=== PATIENT | male | born 1990 | race Hispanic/Latino ===

== ENCOUNTER 2017-11-30 20:21 | Emergency (ER) | payer BC ==
[2017-11-30 20:27] VITALS: TEMP 98
[2017-11-30 20:55] VITALS: BP 148/84; PULSE 80; RESP 18
[2017-11-30 20:57] VITALS: O2SAT 94
--- NOTE | 2017-11-30 20:57 | ED PDOC ---
Upper Extremity Pain/Injury Time Seen by Provider: 11/30/17 20:30 Chief Complaint (Nursing): Upper Extremity Problem/Injury Chief Complaint (Provider): left shoulder pain History Per: Patient History/Exam Limitations: no limitations Onset/Duration Of Symptoms: Mins (SPECIAL INVESTIGATOR) Current Symptoms Are (Timing): Still Present Quality: "Pain" Pain Scale Rating Of: 10 Additional Complaint(s): Meghan Bonilla is a 27 year old male, with a history of previous shoulder dislocation, who presents to the emergency department complaining of left shoulder pain and obvious dislocation onset prior to arrival. Patient states he was playing rugby and he hyperextended his arm when he felt it move out of place. Patient is unable to raise arm and rates the pain a 10/10. Patient denies any other injuries or medical complaints. PMD: None provided. Past Medical History Reviewed: Historical Data, Nursing Documentation, Vital Signs Vital Signs: Last Vital Signs Temp 98.0 F 11/30/17 20:23 Pulse 78 11/30/17 20:23 Resp 22 11/30/17 20:23 BP 114/74 11/30/17 20:23 Pulse Ox 94 L 11/30/17 20:23 - Medical History PMH: No Chronic Diseases - Surgical History Surgical History: No Surg Hx - Family History Family History: States: Unknown Family Hx - Social History Current smoker - smoking cessation education provided: No Alcohol: Occasional Drugs: Denies - Allergies Allergies/Adverse Reactions: Allergies Allergy/AdvReac Type Severity Reaction Status Date / Time Penicillins Allergy RASH Verified 11/30/17 20:23 Review of Systems ROS Statement: Except As Marked, All Systems Reviewed And Found Negative Musculoskeletal: Positive for: Shoulder Pain (left) Physical Exam - Reviewed Nursing Documentation Reviewed: Yes Vital Signs Reviewed: Yes - Physical Exam Appears: Positive for: Non-toxic Head Exam: Positive for: ATRAUMATIC, NORMAL INSPECTION, NORMOCEPHALIC Skin: Positive for: Normal Color, Warm, Dry Eye Exam: Positive for: Normal appearance Neck: Positive for: Painless ROM Extremity: Positive for: Tenderness (left shoulder), Deformity (left shoulder obvious deformity indicative of anterior dislocation. ) Neurologic/Psych: Positive for: Alert, Oriented - ECG O2 Sat by Pulse Oximetry: 94 (RA) Pulse Ox Interpretation: Abnormal Medical Decision Making Medical Decision Making: Time: 20:30 Initial Impression: 27 y/o male with acute left shoulder dislocation. Initial Plan: --Motrin tab 600 mg PO --Shoulder left [RAD] 20:40 -Modified Milch maneuver used to successfully reduce shoulder dislocation. At patient's request no analgesics used. -post reduction xray shoulder shows successfully reduced. 20:50 -Upon provider reevaluation patient is feeling better and requires no further treatment in the ED at this time. Patient will be discharged home. Counseling was provided and all questions were answered regarding diagnosis and need for follow up with orthopedist. There is agreement to discharge plan. Return if symptoms persist or worsen. ----- Scribe Attestation: Documented by Harvinder Kelly, acting as a scribe for Iraj Helms MD. Provider Scribe Attestation: All medical record entries made by the Scribe were at my direction and personally dictated by me. I have reviewed the chart and agree that the record accurately reflects my personal performance of the history, physical exam, medical decision making, and the department course for this patient. I have also personally directed, reviewed, and agree with the discharge instructions and disposition. Disposition - Clinical Impression Clinical Impression: Shoulder dislocation - Disposition Disposition: Routine/Home Disposition Time: 20:50 Condition: IMPROVED Additional Instructions: MEGHAN BONILLA, thank you for letting us take care of you today. Your provider was Iraj Helms MD and you were treated for LT SHOULDER PAIN. The emergency medical care you received today was directed at your acute symptoms. If you were prescribed any medication, please fill it and take as directed. It may take several days for your symptoms to resolve. Return to the Emergency Department if your symptoms worsen, do not improve, or if you have any other problems. Please contact your doctor or call one of the physicians/clinics you have been referred to that are listed on the Patient Visit Information form that is included in your discharge packet. Bring any paperwork you were given at discharge with you along with any medications you are taking to your follow up visit. Our treatment cannot replace ongoing medical care by a primary care provider outside of the emergency department. Thank you for allowing the [facility] team to be part of your care today. If you had an X-Ray or CT scan: A Radiologist will review the ED reading if any change in treatment is needed we will contact you. If you had a blood, urine, or wound culture: It will take several days for the results, if any change in treatment is needed we will contact you. If you had an STI test: It will take 48 hours for the results. Please call after 1 week if you have not heard back. Instructions: Shoulder Dislocation Forms: [facility] (Maltese)
--- NOTE | 2017-12-01 09:41 | RAD ---
Date of service: 11/30/2017 PROCEDURE: Radiographs of the Left Shoulder HISTORY: dislocation s/p reduction COMPARISON: No prior. FINDINGS: BONES: A single postreduction view of the left shoulder has been submitted for interpretation. There is no acute fracture or anterior dislocation appreciated at this time grossly. Given single frontal technique, is difficult to evaluate for potential posterior dislocation which is uncommon and unlikely. Clinically correlate nevertheless. The acromioclavicular joint appears intact and unremarkable. JOINTS: As above. SOFT TISSUES: Normal. OTHER FINDINGS: None. IMPRESSION: No displaced fracture identified. No evidence to suggest anterior dislocation at this time. Limitation: Single fall technique limits evaluation for potential posterior dislocation (with this being unlikely) clinically correlate.
== END 2017-11-30 21:10 | disposition home or self-care (01) ==
LOC: H.ER 20:21
DX: S43.005A Unspecified dislocation of left shoulder joint, initial encounter (principal); X50.9XXA Other and unspecified overexertion or strenuous movements or postures, initial encounter; Y92.328 Other athletic field as the place of occurrence of the external cause; Z88.0 Allergy status to penicillin

== ENCOUNTER 2018-02-04 02:48 | Emergency (ER) | payer BC ==
[2018-02-04 03:11] VITALS: RESP 16; TEMP 98.1; O2SAT 99
[2018-02-04] MEDS ORDERED: Midazolam 2 MG/2 ML VIAL ONE (03:43)
[2018-02-04] MEDS ORDERED: diaZEpam 10 mg/2 ml Inj IVP STA (03:43)
[2018-02-04] MEDS ORDERED: Midazolam 2 MG/2 ML VIAL IV STA (04:49)
--- NOTE | 2018-02-04 06:30 | ED PDOC ---
Upper Extremity Pain/Injury Chief Complaint (Provider): LEft shoulder dislocation History Per: Patient History/Exam Limitations: no limitations Onset/Duration Of Symptoms: Mins Current Symptoms Are (Timing): Still Present Additional Complaint(s): 27 yo male with 2 previous left shoulder dislocation presents with left shoulder pain after reaching arm back for a pillow. Pt states he took 600mg motrin.Pt states he has no numbness/tingling. Pt prefers not to have pain medications. Pt seen in ER in beginning of november for same. Reduced with Modified milch at that time. <Beatrice Max - Last Filed: 02/04/18 21:30> <Farhat Diaz - Last Filed: 02/06/18 04:27> Time Seen by Provider: 02/04/18 02:54 Chief Complaint (Nursing): Upper Extremity Problem/Injury Supervising Attending Note - Attestation: I have personally seen and examined this patient.: Yes I have fully participated in the care of the patient.: Yes I have reviewed all pertinent clinical information: Yes <Farhat Diaz - Last Filed: 02/06/18 04:27> Past Medical History Reviewed: Historical Data, Nursing Documentation, Vital Signs Vital Signs: Last Vital Signs Temp 98.1 F 02/04/18 03:06 Pulse 78 02/04/18 03:06 Resp 16 02/04/18 03:06 BP 132/84 02/04/18 03:06 Pulse Ox 99 02/04/18 03:06 - Medical History PMH: No Chronic Diseases Other PMH: Previous left shoulder dislocation x 2 - Surgical History Surgical History: Tonsillectomy - Family History Family History: States: Unknown Family Hx - Living Arrangements Living Arrangements: With Family - Social History Current smoker - smoking cessation education provided: No Alcohol: None Drugs: Denies <Baetrice Max - Last Filed: 02/04/18 21:30> Vital Signs: Last Vital Signs Temp 98.1 F 02/04/18 03:06 Pulse 84 02/04/18 06:44 Resp 16 02/04/18 03:06 BP 110/74 02/04/18 06:44 Pulse Ox 99 02/04/18 21:41 <Farhat Diaz - Last Filed: 02/06/18 04:27> - Allergies Allergies/Adverse Reactions: Allergies Allergy/AdvReac Type Severity Reaction Status Date / Time Penicillins Allergy RASH Verified 11/30/17 20:23 Review of Systems ROS Statement: Except As Marked, All Systems Reviewed And Found Negative Constitutional: Negative for: Fever, Chills Cardiovascular: Negative for: Chest Pain, Palpitations Respiratory: Negative for: Cough, Shortness of Breath Musculoskeletal: Positive for: Shoulder Pain (Left shoulder pain) <Beatrice Max Stefany - Last Filed: 02/04/18 21:30> Physical Exam - Reviewed Nursing Documentation Reviewed: Yes Vital Signs Reviewed: Yes - Physical Exam Appears: Positive for: Well, Non-toxic, No Acute Distress Head Exam: Positive for: ATRAUMATIC, NORMAL INSPECTION, NORMOCEPHALIC Skin: Positive for: Normal Color, Warm, DRY Eye Exam: Positive for: Normal appearance ENT: Positive for: Normal ENT Inspection Neck: Positive for: Normal Cardiovascular/Chest: Negative for: Bradycardia, Tachycardia Respiratory: Negative for: Accessory Muscle Use, Respiratory Distress Back: Positive for: Normal Inspection Extremity: Positive for: Deformity, Other (Radial pulse 2+, senation intact, 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 Negative for: Normal ROM (Decreased in left shoulder, (+) left shoulder deformity consistant with dislocation), Swelling Neurologic/Psych: Positive for: Alert, Oriented <Beatrice Max - Last Filed: 02/04/18 21:30> - ECG O2 Sat by Pulse Oximetry: 99 Pulse Ox Interpretation: Normal <Beatrice Max Stefany - Last Filed: 02/04/18 21:30> Medical Decision Making Medical Decision Making: Modified milch attempted in ER. WEll tolerated by patient. Palpable pop and patient reports reduction in pain however on re-examination should is still not in joint. Downward traction and external rotation attempted by Dr. Diaz. Well tolerated by patient. Shoulder is reduced however return to dislocated position when traction removed. Pt given 4mg of versed IV. Reduction completed by Dr. Diaz using downward traction and external rotation. PT placed in shoulder immobilizer. Reports reduction in pain. Neurovascularly intact. <Beatrice Max - Last Filed: 02/04/18 21:30> Disposition - Patient ED Disposition Is Patient to be Admitted: No Counseled Patient/Family Regarding: Diagnosis, Need For Followup - Disposition Disposition: Routine/Home Disposition Time: 06:30 <Beatrice Max - Last Filed: 02/04/18 21:30> <Farhat Diaz - Last Filed: 02/06/18 04:27> - Clinical Impression Clinical Impression: Shoulder dislocation - Disposition Referrals: Vasquez Waggoner MD [Staff Provider] - Condition: GOOD Instructions: Shoulder Dislocation Forms: [facility] (Georgian)
[2018-02-04 06:46] VITALS: BP 110/74; PULSE 84
== END 2018-02-04 06:44 | disposition home or self-care (01) ==
LOC: H.ER 02:48
DX: S43.005A Unspecified dislocation of left shoulder joint, initial encounter (principal); X50.9XXA Other and unspecified overexertion or strenuous movements or postures, initial encounter; Y92.89 Other specified places as the place of occurrence of the external cause; Z88.0 Allergy status to penicillin
CPT/HCPCS: 23655; 96374; 99283; J2250